=== PATIENT | female | born 1995 | race Caucasian/White ===

== ENCOUNTER 2024-08-22 08:46 | Emergency (ER) | payer MEDICAID ==
[~2024-08-22] VITALS: Ht 160 cm; Wt 81.8 kg
[2024-08-22 08:51] VITALS: BP 112/65; PULSE 84; RESP 18; TEMP 98.4; O2SAT 99
[2024-08-22] MEDS ORDERED: PNV1TABL77 PO (08:55)
== END 2024-08-22 09:46 | disposition home or self-care (01) ==
LOC: EMS 08:53
DX: O26.891 Other specified pregnancy related conditions, first trimester (principal); L29.9 Pruritus, unspecified; Z3A.01 Less than 8 weeks gestation of pregnancy; Z79.899 Other long term (current) drug therapy; W57.XXXA Bitten or stung by nonvenomous insect and other nonvenomous arthropods, initial encounter; Y93.89 Activity, other specified; Y92.89 Other specified places as the place of occurrence of the external cause; Y99.8 Other external cause status
CPT/HCPCS: 99282; Z7502